=== PATIENT | male | born 1965 | race Caucasian/White ===

== ENCOUNTER 2021-05-29 12:49 | Emergency (ER) | payer OTHER ==
[~2021-05-29] VITALS: Ht 170.2 cm; Wt 77.2 kg
[2021-05-29] MEDS ORDERED: LORazepam 1 MG TABLET PO ONE ×2 (13:00→14:15)
--- NOTE | 2021-05-29 13:08 | PHYS DOC ---
Past History Additional Past Medical Histor: ptsd (TAWNY MCDERMOTT APRN) Past Surgical History: No Surgical History (TAWNY MCDERMOTT APRN) Adult General Chief Complaint Chief Complaint: ANXIETY/PANIC ATTACK HPI HPI Patient is a 55-year-old male who presents to the emergency department complaining of an anxiety attack. Patient reports he lives at home alone, did not feel like sitting at home by himself today and became very anxious. Patient reports this happens to him often and he usually goes to the [facility] in [facility] who treats him with Ativan and "some other medication". P atient denies homicidal or suicidal ideation. Denies visual disturbances, denies visual hallucinations, denies chest pains, shortness of breath, or recent fever or chills. Patient denies other physical complaints or physical concerns. (TAWNY MCDERMOTT APRN) Review of Systems Review of Systems 14 body systems of review of systems have been reviewed. See HPI for pertinent positives and negative responses, otherwise all other systems are negative, nonpertinent or noncontributory. Constitutional: Negative except as outlined in HPI above. Skin: Negative except as outlined in HPI above. Eyes: Negative except as outlined in HPI above. HENT: Negative except as outlined in HPI above. Respiratory: Negative except as outlined in HPI above. Cardiovascular: Negative except as outlined in HPI above. GI: Negative except as outlined in HPI above. : Negative except as outlined in HPI above. Musculoskeletal: Negative except as outlined in HPI above. Integument: Negative except as outlined in HPI above. Neurologic: Negative except as outlined in HPI above. Endocrine: Negative except as outlined in HPI above. Lymphatic: Negative except as outlined in HPI above. Psychiatric: Negative except as outlined in HPI above. (TAWNY MCDERMOTT APRN) Current Medications Current Medications Current Medications Medications (Trade) Dose Ordered Sig/Price Start Time Stop Time Status Last Admin Dose Admin Lorazepam (Ativan) 1 mg 1X ONCE 05/29/21 13:00 05/29/21 13:01 DC (TAWNY MCDERMOTT APRN) Allergies Allergies Allergies Coded Allergies Type Severity Reaction Last Updated Verified No Known Drug Allergies 05/29/21 No (TAWNY MCDERMOTT APRN) Physical Exam Physical Exam Constitutional: Well developed, well nourished, no acute distress, non-toxic appearance. 55-year-old male in no apparent distress. HENT: Normocephalic, atraumatic. Eyes: Conjunctiva normal, no discharge. Neck: Normal range of motion, no stridor. Cardiovascular: No cyanosis appreciated, distal cap refill less than 2 seconds. Lungs & Thorax: Patient is in no respiratory distress, no audible adventitious lung sounds appreciated. Abdomen: Nontender, no abnormalities noted. Skin: Warm, dry, no erythema, no rash. Back: No tenderness, no deformities. Extremities: No tenderness, no cyanosis, no clubbing, ROM intact, no edema. Neurologic: Alert and oriented X 3, normal motor function, normal sensory funct ion, no focal deficits noted. Psychologic: Affect flat, judgement normal, mood normal. (TAWNY MCDERMOTT APRN) Current Patient Data Vital Signs Vital Signs Date Time Temp Pulse Resp B/P (MAP) Pulse Ox O2 Delivery O2 Flow Rate FiO2 05/29/21 12:52 97.9 60 22 96 Room Air (TAWNY MCDERMOTT APRN) EKG EKG [] (TAWNY MCDERMOTT APRN) Radiology/Procedures Radiology/Procedures [] (TAWNY MCDERMOTT APRN) Heart Score C/O Chest Pain: No Risk Factors: Risk Factors: DM, Current or recent (<one month) smoker, HTN, HLP, family history of CAD, obesity. Risk Scores: Risk Factors: DM, Current or recent (<one month) smoker, HTN, HLP, family history of CAD, obesity. (TAWNY MCDERMOTT APRN) Course & Med Decision Making Course & Med Decision Making Pertinent Labs and Imaging studies reviewed. (See chart for details) 55-year-old male, vital signs reviewed, presents emergency department concerning feeling anxious. Physical examination consistent with anxiety attack, will give 1 mg Ativan and reevaluate after period of time. Patient is not homicidal or suicidal. Upon reevaluation of the patient, patient reports she is starting to feel better, will give an additional 1 mg Ativan p.o. Will reevaluate after period of time. Upon reevaluation of patient, patient reports he feels much better now and no longer is feeling anxious. Patient continues to deny homicidal or suicidal ideation. Patient remains nontoxic in appearance, affect normal at this time and no longer flat. Will discharge to home. Discussed with the patient all findings and diagnostic testing as well as the need to follow-up with their primary care provider for further evaluation and treatment or return to the ED if any new or worsening symptoms. Strict return precautions were also discussed at length, the patient voiced understanding and agreement with the discharge planning. The patient was nontoxic in appearance, in no apparent distress, and hemodynamically stable at the time of disposition. (TAWNY MCDERMOTT APRN) Dragon Disclaimer Dragon Disclaimer This electronic medical record was generated, in whole or in part, using a voice recognition dictation system. (TAWNY MCDERMOTT APRN) Attending Co-Sign The patient was seen and interviewed as well as examined at the bedside. The chart was reviewed. The case was discussed. Agree with the plan of care. (ISAEL DINH DO) Departure Departure: Impression: Primary Impression: Anxiety attack Disposition: HOME / SELF CARE / HOMELESS Condition: GOOD Patient Instructions: Anxiety and Panic Attacks Additional Instructions: You are seen today in the emergency department for an anxiety attack. You were given Ativan medication which you claimed helped you. Please keep all of your ongoing appointments with the [facility] doctor at [place]. Return to the emergency department for worsening symptoms other concerns. Thank you for visiting our Emergency Department. It was a pleasure taking care of you today in the emergency department and we appreciate you trusting us with your care. If any additional problems come up don't hesitate to return to visit us. Please follow up with your primary care provider so they can plan additional care if needed and know about the problem that you had. If symptoms worsen come back to the Emergency Department. Any concerning symptoms that start such as chest pain, shortness of air, weakness or numbness on one side of the body, running high fevers or any other concerning symptoms return to the ER. TAWNY MCDERMOTT APRN May 29, 2021 13:08 ISAEL DINH DO May 31, 2021 10:53
[2021-05-29 14:59] VITALS: BP 120/76
== END 2021-05-29 15:07 | disposition home or self-care (01) ==
LOC: ER 12:49
DX: F41.9 Anxiety disorder, unspecified (principal); F43.10 Post-traumatic stress disorder, unspecified
CPT/HCPCS: 99283